=== PATIENT | male | born 1980 | race Two or more races ===

== ENCOUNTER 2017-09-27 13:13 | Emergency (ER) | payer BC, MEDICAID, OTHER, SELFPAY ==
[~2017-09-27] VITALS: Ht 170.2 cm; Wt 84.8 kg
[2017-09-27 15:21] LABS: HEMATOCRIT 48.3 % (39.2-51.8); HEMOGLOBIN 16.1 g/dL (13.7-18.0); WHITE BLOOD COUNT 7.8 x10^3/uL (3.4-10)
[2017-09-27 15:30] LABS: BLOOD UREA NITROGEN 11 mg/dL (7-18)
[2017-09-27 17:44] VITALS: BP 127/81
== END 2017-09-27 17:45 | disposition home or self-care (01) ==
LOC: ED 16:45
DX: M54.5 Low back pain (principal); Z87.891 Personal history of nicotine dependence
CPT/HCPCS: 36415; 74176; 80048; 81003; 82040; 85025; 99285